=== PATIENT | male | born 1945 | race Caucasian/White ===

== ENCOUNTER 2017-04-01 19:49 | Emergency (ER) | payer MEDICARE, BC ==
[2017-04-01 20:19] LABS: BASOPHILS # (AUTO) 0.2 10^3/uL (0.0-0.1); BASOPHILS % (AUTO) 1.3 %; EOSINOPHILS # (AUTO) 0.8 10^3/uL (0.0-0.7); EOSINOPHILS % (AUTO) 6.1 %; HCT - HEMATOCRIT 47.4 % (42.0-52.0); HGB - HEMOGLOBIN 15.9 g/dL (14.0-18.0); LYMPHOCYTES # (AUTO) 3.3 10^3/uL (1.5-3.5); LYMPHOCYTES % (AUTO) 25.9 %; MEAN CORPUSCULAR HEMOGLOBIN 30.6 pg (27.0-31.0); MEAN CORPUSCULAR HGB CONC 33.5 g/dL (32.0-36.0); MEAN CORPUSCULAR VOLUME 91.5 fL (80.0-94.0); MEAN PLATELET VOLUME 8.7 fL (7.4-11.4); MONOCYTES # (AUTO) 0.9 10^3/uL (0.0-1.0); MONOCYTES % (AUTO) 7.3 %; NEUTROPHILS # (AUTO) 7.6 10^3/uL (1.5-6.6); NEUTROPHILS % (AUTO) 59.4 %; RED BLOOD COUNT 5.18 10^6/uL (4.70-6.10); RED CELL DISTRIBUTION WIDTH 13.6 % (12.0-15.0); UNCORRECTED WHITE BLOOD COUNT 12.7 x10^3/uL; WHITE BLOOD COUNT 12.7 x10^3/uL (4.8-10.8)
[2017-04-01 20:31] LABS: ALBUMIN/GLOBULIN RATIO 1.2 (1.0-2.2); BILIRUBIN,TOTAL 0.6 mg/dL (0.2-1.0); CALCIUM 9.5 mg/dL (8.5-10.3); CREATININE 0.8 mg/dL (0.6-1.2); POTASSIUM 3.9 mmol/L (3.5-5.0)
--- NOTE | 2017-04-01 20:42 | ED Physician Documentation ---
PD HPI SYNCOPE - Stated complaint Stated Complaint: PASSED OUT - Chief complaint Chief Complaint: Neuro - History obtained from History obtained from: Patient, Family - History of Present Illness Witnessed: Witnessed Timing - onset: How many hours ago (1) Duration: Seconds Preceding symptoms: Light headed. No: Vision changes, Chest pain Associated symptoms: No: Seizure, Incontinant of urine, Incontinant of stool, Headache, Vision changes, Chest pain Contributing factors: Just stood up Similar symptoms before: Work up / diagnostics Recently seen: Not recently seen - Additional information Additional information: Patient is a 71 year old male who is presenting to the emergency department for a syncopal episode. Patient states that today he was putting in a wood floor for most of the day. After dinner he stood up and felt dizzy. Patient states that he was able to get to the couch, and sit down and he ended up passing out for about a minute. They came to the emergency department for evaluation. Upon initial evaluation in the emergency department patient was asymptomatic. Review of Systems Constitutional: denies: Fever, Chills Eyes: denies: Decreased vision, Photophobia Ears: denies: Ear pain, Drainage/discharge Nose: denies: Congestion Throat: denies: Sore throat Cardiac: denies: Chest pain / pressure, Palpitations, Pedal edema, Calf pain Respiratory: denies: Dyspnea, Cough, Wheezing GI: denies: Nausea, Vomiting : reports: Reviewed and negative Skin: denies: Rash, Lesions Musculoskeletal: denies: Neck pain, Back pain, Extremity pain Neurologic: reports: Syncope. denies: Generalized weakness, Focal weakness, Seizure, Confused, Altered mental status, Headache, Head injury Immunocompromised: denies: Immunocompromised PD PAST MEDICAL HISTORY - Past Medical History Past Medical History: Yes Cardiovascular: [place], Atrial fibrillation, Other - Past Surgical History Past Surgical History: Yes General: Cholecystectomy Cardiovascular: Pacemaker - Allergies Allergies/Adverse Reactions: Allergies Allergy/AdvReac Type Severity Reaction Status Date / Time No Known Drug Allergies Allergy Verified 04/01/17 19:55 - Social History Does the pt smoke?: Yes Smoking Status: Current some day smoker Does the pt drink ETOH?: No PD ED PE NORMAL - Vitals Vital signs reviewed: Yes - General General: Alert and oriented X 3, No acute distress, Well developed/nourished - HEENT HEENT: Atraumatic, PERRL - Neck Neck: Supple, no meningeal sign, No JVD - Cardiac Cardiac: RRR, No murmur - Respiratory Respiratory: No respiratory distress, Clear bilaterally - Abdomen Abdomen: Soft, Non tender, Non distended - Derm Derm: Normal color, Warm and dry, No rash - Extremities Extremities: No deformity, No edema - Neuro Neuro: Alert and oriented X 3, No motor deficit, No sensory deficit, Normal speech Eye Opening: Spontaneous Motor: Obeys Commands Verbal: Oriented GCS Score: 15 - Psych Psych: Normal mood PD ED PE EXPANDED - HEENT HEENT: Dry mucous membranes Results - Vitals Vitals: Vital Signs - 24 hr 04/01/17 04/01/17 04/01/17 19:52 20:22 21:47 Temperature 36 C L Heart Rate 78 67 64 Respiratory 18 15 15 Rate Blood Pressure 129/78 118/68 111/91 H O2 Saturation 97 95 95 Oxygen O2 Source Room air - EKG (time done) 2015 Rate: Rate (enter#) (72) Rhythm: Paced [place]: LAD, Anterior hemiblock QRS: Normal Compare to prior EKG: Old EKG unavailable - Labs Labs: Laboratory Tests 04/01/17 04/01/17 04/01/17 20:15 20:15 20:15 WBC 12.7 H RBC 5.18 Hgb 15.9 Hct 47.4 MCV 91.5 MCH 30.6 MCHC 33.5 RDW 13.6 Plt Count 192 MPV 8.7 Neut # 7.6 H Lymph # 3.3 [place] # 0.9 Eos # 0.8 H Baso # 0.2 H Absolute Nucleated RBC 0.00 Nucleated RBC % 0.0 Sodium 136 Potassium 3.9 Chloride 100 L Carbon Dioxide 25 Anion Gap 11.0 BUN 26 H Creatinine 0.8 Estimated GFR (MDRD) 96 Glucose 106 H Calcium 9.5 Total Bilirubin 0.6 AST 38 ALT 56 Alkaline Phosphatase 62 Troponin I < 0.04 B-Natriuretic Peptide Total Protein 8.0 Albumin 4.3 Globulin 3.7 Albumin/Globulin Ratio 1.2 Lipase 38 04/01/17 20:15 WBC RBC Hgb Hct MCV MCH MCHC RDW Plt Count MPV Neut # Lymph # [place] # Eos # Baso # Absolute Nucleated RBC Nucleated RBC % Sodium Potassium Chloride Carbon Dioxide Anion Gap BUN Creatinine Estimated GFR (MDRD) Glucose Calcium Total Bilirubin AST ALT Alkaline Phosphatase Troponin I B-Natriuretic Peptide 52 Total Protein Albumin Globulin Albumin/Globulin Ratio Lipase - Rads (name of study) chest x-ray Radiology: Final report received (pacemaker in place, mild interstitial prominence) PD MEDICAL DECISION MAKING - ED course Complexity details: reviewed old records, reviewed results, re-evaluated patient , considered differential, d/w patient, d/w family ED course: Patient was seen and examined at bedside. ekg was performed and showed a paced rhythm. labs were drawn and were within normal limits. Patient's symptoms were likely secondary to episodic hypotension after standing up. Family was made aware of the importance of close cardiac follow up. Patient required no further inpatient work up and was stable for discharge with outpatient follow up. Departure - Departure Disposition: 01 Home, Self Care Clinical Impression: Syncope Condition: Good Instructions: ED Syncope Vasovagal Follow-Up: primary,care provider [Other] - Within 3 Days Comments: Your diagnostics today were within normal limits. there were no major abnormalities. You will need to stay well hydrated, and don't get up to quickly. the results is only a snap shot in time and you will still need to follow up with your doctor. You may return to the emergency department at any time for new, worsening or uncontrollable symptoms. Discharge Date/Time: 04/01/17 21:51
--- NOTE | 2017-04-01 21:04 | XRAY Preliminary Report ---
Exam: XR CHEST 1 VIEW IMPRESSION: 1. Dual lead cardiac device in expected position. 2. Mild interstitial prominence concerning for mild pulmonary edema. No consolidation. 3. No pneumothorax or effusions. [facility] SITE ID: [id number]
--- NOTE | 2017-04-01 21:10 | XRAY Report ---
EXAM: CHEST RADIOGRAPHY EXAM DATE: 04/01/2017 08:35 PM. CLINICAL HISTORY: Chest pain. COMPARISON: None. TECHNIQUE: 1 view. FINDINGS: Lungs/Pleura: Mild bronchial wall thickening. No consolidation. Diffuse mild interstitial prominence. No pneumothorax or large effusions. Mediastinum: Within exam limitations, the cardiomediastinal contour is normal. Other: None. IMPRESSION: 1. Dual lead cardiac device in expected position. 2. Mild interstitial prominence concerning for mild pulmonary edema. No consolidation. 3. No pneumothorax or effusions. [facility] Referring Provider Line: [phone] SITE ID: [id number]
[2017-04-01 21:48] VITALS: BP 111/91
== END 2017-04-01 21:51 | disposition home or self-care (01) ==
LOC: ED 19:49
DX: R55 Syncope and collapse (principal); R94.31 Abnormal electrocardiogram [ECG] [EKG]; I25.2 Old myocardial infarction; Z95.0 Presence of cardiac pacemaker; F17.200 Nicotine dependence, unspecified, uncomplicated
CPT/HCPCS: 36415; 71010; 80053; 83690; 83880; 84484; 85025; 93005; 99284; 99285